=== PATIENT | male | born 1980 | race Caucasian/White ===

== ENCOUNTER → 2023-07-09 14:41 | Outpatient (REF) | payer SELFPAY | LOC: HWRAD 14:41 | PROVIDERS: ATTENDING PHYSICIAN Internal Medicine | DX: E78.5 Hyperlipidemia, unspecified (principal) | CPT/HCPCS: 75571 ==

== ENCOUNTER 2023-10-15 18:51 | Emergency (ER) | payer BC, SELFPAY ==
[2023-10-15 18:52] VITALS: BP 138/98
[2023-10-15 21:05] VITALS: BMI 31.7
[2023-10-15] MEDS: DECADRON 10 MG IV (21:08)
[2023-10-15] MEDS: TORADOL 30 MG IV (21:09)
[2023-10-15 21:14] VITALS: BP 119/76
[2023-10-15] MEDS: DILAUDID 0.5 MG IV ×2 (22:25→23:07)
[2023-10-15 23:02] VITALS: BP 132/85
[2023-10-15] MEDS: ZOFRAN 4 MG IV (23:06)
--- NOTE | 2023-10-15 23:18 | ED.GENMED ---
History of Present Illness
General
Chief Complaint: Back Pain
Source: patient
Exam Limitations: none
Time Seen by Provider: 10/15/23 20:34
Nursing documentation reviewed up to this point in time: agreed with
History of Present Illness
History of Present Illness:
Patient to ED with complaint of worsening low back pain. 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 Noticed some tightness in back initially but states pain is now severe. Taking IBu without improvement. Denies fever/chills. No bowel
or bladder symptoms. Pain radiates to buttocks at times. No weakness in extremities, no saddle paresthesia. No prior history of same. Has appoitment with Dr. Cuenca tomorrow.
Past History
Past History
ED Past Medical History: None
Review of Systems
Review of Systems
Allergies reviewed?: Yes
All Other Systems: ROS reviewed and negative except as documented in HPI and ROS
Constitutional: Reports no symptoms
EENT: Reports no symptoms
Respiratory: Reports no symptoms
Cardiac: Reports no symptoms
ABD/GI: Reports no symptoms
: Reports no symptoms
Musculoskeletal: Reports back pain (low back pain with radiation to buttocks)
Skin: Reports no symptoms
Neurological: Reports no symptoms
Psychiatric: Reports no symptoms
Phy Exam
General Physical Exam
General Presentation: well appearing and moderate distress
General age: appears stated age
General Skin: warm and dry
General Habitus: normal
General Mental: alert
General Hydration: appears well hydrated
Musculoskeletal Exam
Musculoskeletal Exam: back pain (bilateral low back pain) and neuro vasc intact
Skin Exam
Skin Exam: normal color and warm/dry
Psychiatric Exam
Psychiatric Exam: normal mood/affect
Course
Orders/Labs/Results
Orders:
Orders
10/15/23 20:58
Dexamethasone Sod Phosphate [Decadron] 10 mg IV NOW STA
Ketorolac [Toradol] 30 mg IV NOW STA
10/15/23 21:37
Lumbar Spine Complete, 4 View [CR Lumbar Spine Comp Min 4 Vw*] Urgent
Comment:
Reason For Exam: pain
10/15/23 22:09
HYDROmorphone [Dilaudid] 0.5 mg IV NOW STA
10/15/23 22:52
HYDROmorphone [Dilaudid] 0.5 mg IV NOW STA
10/15/23 22:53
Ondansetron Injectable [Zofran] 4 mg IV NOW STA
Vital Signs
Initial and Last Documented VS:
Initial Vital Signs
Temp Pulse Resp BP Pulse Ox
97.6 F 67 20 138/98 98
10/15/23 18:52 10/15/23 18:52 10/15/23 18:52 10/15/23 18:52 10/15/23 18:52
Last Documented Vital Signs
Temp Pulse Resp BP Pulse Ox
97.6 F 60 18 132/85 99
10/15/23 18:52 10/15/23 23:02 10/15/23 23:02 10/15/23 23:02 10/15/23 23:02
*Radiology
Radiology exam reviewed: radiology read reviewed
*Pulse Oximetry
Patient hypoxic: no
*Critical Care Note
Total Time (30-74mins, 75-104mins- exclusive of procedures): Not Applicable
Update Note
Update Note:
Some improvement with IV narcotic but unfortunately not pain free. Given dose of decadron IV for suspected radicular pain to buttocks. WIll recommend continuing ibuprofen 600mg q6, given rx for short course po narcotic. He has an appointment
tomorrow schedule with Dr. Cuenca for further management of his back pain
ED Attending Note
-
Portions of this chart may have been created with voice recognition software.� Occasional wrong word or��sound alike� substitutions may have occurred due to the inherent limitations of voice recognition software.
Discharge Plan
Departure
Patient Disposition: Home (Routine Discharge)
Date of Disposition: 10/15/23
Time of Disposition: 22:53
Patient with high blood pressure during this ER visit?: No
Condition: Good
Covid-19: Not Applicable
Discharge Problem:
Lumbar strain
Instructions: Low Back Pain (DC), Ibuprofen, Using Cold for Pain
Prescriptions:
New
acetaminophen-codeine 300-30 mg tablet
1 - 2 tab PO Q4H PRN (Reason: Pain) Qty: 14 0RF
Referrals:
Dony Cuenca, [Non-Admitting Privileges] - Keep scheduled appt
Alex Schaefer MD [Family Provider] -
Stand Alone Forms: Return to Work
Interventions
Interventions:
*Risk Screen - Suicide Last Done: 10/15/23 18:52
*General Assessment Last Done: 10/15/23 18:52
*Neglect/Abuse Screening Last Done: 10/15/23 21:05
ED- Fall Risk Assessment Last Done: 10/15/23 22:31
*ED COVID-19 Vaccine History Last Done: 10/15/23 21:05
ED-Musculoskeletal Assessment Last Done: 10/15/23 21:13
Discharge Date and Time
Print Language: BHUTANESE
Musculoskeletal Injury Exam
Musculoskeletal Injury Exam
Bilateral Lower Back:
Pain with Movement?: Moderate
Tender to palpation?: Mild
Soft tissue swelling?: None
External deformity and angulation?: None
Joint effusion?: None
Contusion?: None
Hematoma-local bleeding into tissue?: None
Strain- Sprain- Tear (Connective tissue injury)?: Moderate
Crepitus with movement?: No
Joint instability?: No
Malalignment/deformity?: No
Range of motion: Limited (Able to ambulate. Limited bend and twist. Pain worse with sitting)
Distal skin color and temperature: normal-warm & good color
Capillary Refill: normal
Normal distal neurovascular exam?: Yes
== END 2023-10-15 23:36 | disposition home or self-care (01) ==
LOC: EMR 18:51
PROVIDERS: EMERGENCY PHYSICIAN Emergency Medicine; FAMILY PHYSICIAN Internal Medicine
DX: S39.012A Strain of muscle, fascia and tendon of lower back, initial encounter (principal); X58.XXXA Exposure to other specified factors, initial encounter
CPT/HCPCS: 99283; 96374; 96375; 96376; 72110

== ENCOUNTER → 2024-12-22 11:40 | Outpatient (REF) | payer BC, SELFPAY | LOC: PAVMRI 11:40 | PROVIDERS: ATTENDING PHYSICIAN Ophthalmology; FAMILY PHYSICIAN Internal Medicine | DX: H16.223 Keratoconjunctivitis sicca, not specified as Sjogren's, bilateral (principal); H02.421 Myogenic ptosis of right eyelid | CPT/HCPCS: 70543; A9575 ==